=== PATIENT | female | born 1960 | race Caucasian/White ===

== ENCOUNTER → 2016-11-06 | Outpatient (CLI) | payer BC ==
[~2016-11-06] MED LIST: CALTRATE 600600 MG PO; LASIX 40MG TABL40 MG PO; PAXIL 20MG20 MG PO; PREVACID 15MG15 M1 PO
== END ==
LOC: LIGHT 12:54
DX: R73.01 Impaired fasting glucose (principal); K21.9 Gastro-esophageal reflux disease without esophagitis; G47.33 Obstructive sleep apnea (adult) (pediatric); E66.01 Morbid (severe) obesity due to excess calories; Z68.41 Body mass index [BMI] 40.0-44.9, adult

== ENCOUNTER → 2017-02-19 | Outpatient (CLI) | payer BC | LOC: MC.RAD 13:36 | DX: Z12.31 Encounter for screening mammogram for malignant neoplasm of breast (principal); Z98.890 Other specified postprocedural states ==

== ENCOUNTER → 2017-12-31 | Outpatient (CLI) | payer BC | LOC: MC.RAD 13:58 | DX: Z12.31 Encounter for screening mammogram for malignant neoplasm of breast (principal); D24.2 Benign neoplasm of left breast; D24.1 Benign neoplasm of right breast; Z41.1 Encounter for cosmetic surgery ==

== ENCOUNTER → 2019-01-07 | Outpatient (CLI) | payer BC | LOC: MC.RAD 10:26 | DX: Z12.31 Encounter for screening mammogram for malignant neoplasm of breast (principal) ==

== ENCOUNTER → 2019-11-19 | Outpatient (CLI) | payer OTHER ==
[~2019-11-19] MED LIST changes: +AMOXICILLIN 8751 TAB PO; +COLACE 100100 MG/CAP PO; +MELATONIN1 MG PO; +MIRALAX PA17 GM/Dose PO; +NORCO 325 MG-51 TAB PO; +TOPROL XL 50MG50 MG PO; +ULTRAM 50MG TAB50 MG PO; +ZOFRAN ODT4 MG PO
== END ==
LOC: COL.RAD 09:44
DX: K80.10 Calculus of gallbladder with chronic cholecystitis without obstruction (principal)

== ENCOUNTER 2019-11-21 10:27 | Day surgery (SDC) | payer OTHER ==
[~2019-11-21] VITALS: Ht 175.3 cm; Wt 130.3 kg
[2019-11-21] VITALS (8 sets, daily range): BP systolic 137–175; BP diastolic 83–106; PULSE 74–94; TEMP 97.5–97.7
[2019-11-21] MEDS ORDERED: MELATONIN5 M1 PO (11:23)
[2019-11-21] MEDS ORDERED: ALEVE 220MG220 MG PO (11:24)
--- NOTE | 2019-11-21 11:36 | NUR ---
TO RM AT 1040- CALL LIGHT IN REACH FRIEND EDWARD AT BEDSIDE. RECEIVED IC-GREEN DYE
[2019-11-21] MEDS ORDERED: NORCO 325 MG-51 TAB PO (15:53)
[2019-11-21] MEDS ORDERED: MOTRIN 600600 MG/TAB PO (15:53)
--- NOTE | 2019-11-21 19:14 | NUR ---
Patient up to room 322 bed 2 from OR at 1810. Alert and oriented x 3. Lap sites x 5 with edges well approximated. Patient on 5l of O2 to maintain oxygen sats at 93-95%. Post op fluids infusing. Reported off to securities lending trader.
--- NOTE | 2019-11-21 19:30 | NUR ---
Dr. Ahn notified of pt.'s O2 saturation and the need for O2. Pt. will stay the night.
--- NOTE | 2019-11-21 21:30 | NUR ---
Pt. sitting up in bed at this time. Pt. is A&OX3. assessment complete. INT to rt. hand patent. Pt. reports gas pain to shoulders at this time. Pt. assisted with ambulating the halls. Pt. has a steady gait. Pt. also urinated at this time without complication. Pt. rates abd pain at a 4 at this time. Pt. denies need for pain meds at this time. Reminded pt. to call when ready for pain meds. Pt. voices understanding. Pt. denies further needs at this time. Call light within reach.
[2019-11-22 05:23] VITALS: BP 148/67; PULSE 84; TEMP 98.3
--- NOTE | 2019-11-22 07:30 | NUR ---
Patient in bed resting. Alert and oriented x 3. Assessment complete. Patient states she is having abdominal pain 5/10, medications given per orders. Lap sites x 5 with edges well approximated. INT to right hand. Patient states she is also having shoulder pain, educated patient and encouraged to increase ambulation. Denies further needs at this time.
[2019-11-22 07:32] VITALS: BP 160/85; PULSE 96; TEMP 97.4
--- NOTE | 2019-11-22 10:04 | NUR ---
Discharge education provided to patient. Educuated on activity, medications and shower. Educated on signs and symptoms of infection and when to call provider. Patient to call and schedule follow up appointment. Denies further needs at this time. INT to right hand discontinued, catheter tip intact. Denies further needs at this time. Patient dressed and waiting for family to pick her up will call when ready to leave.
--- NOTE | 2019-11-22 10:15 | NUR ---
Patient ambulated out with surgical staff and family
== END 2019-11-22 10:16 | disposition home or self-care (01) ==
LOC: SDCO 10:27 → SURG 19:29 → SDCO 11-22 10:16
DX: K80.13 Calculus of gallbladder with acute and chronic cholecystitis with obstruction (principal); I10 Essential (primary) hypertension; G47.33 Obstructive sleep apnea (adult) (pediatric); F32.9 Major depressive disorder, single episode, unspecified; E66.9 Obesity, unspecified; F17.210 Nicotine dependence, cigarettes, uncomplicated; F41.9 Anxiety disorder, unspecified; Z90.710 Acquired absence of both cervix and uterus; Z80.8 Family history of malignant neoplasm of other organs or systems; Z82.49 Family history of ischemic heart disease and other diseases of the circulatory system; Z85.42 Personal history of malignant neoplasm of other parts of uterus
CPT/HCPCS: OP; A9284; J0690; J1100; J1170; J2270; J3010; J7120

== ENCOUNTER → 2020-01-13 | Outpatient (CLI) | payer OTHER ==
[~2020-01-13] MED LIST changes: +ALEVE 220MG220 MG PO; +MELATONIN5 M1 PO; +MOTRIN 600600 MG/TAB PO
== END ==
LOC: MC.RAD 11:07
DX: Z12.31 Encounter for screening mammogram for malignant neoplasm of breast (principal)

== ENCOUNTER → 2020-07-26 | Outpatient (CLI) | payer OTHER | LOC: COL.RAD 14:31 | DX: K57.32 Diverticulitis of large intestine without perforation or abscess without bleeding (principal); K76.0 Fatty (change of) liver, not elsewhere classified; Z90.49 Acquired absence of other specified parts of digestive tract; Z90.710 Acquired absence of both cervix and uterus | CPT/HCPCS: Q9967 ==

== ENCOUNTER → 2021-11-09 | Outpatient (CLI) | payer OTHER | LOC: MC.RAD 10:45 | DX: Z12.31 Encounter for screening mammogram for malignant neoplasm of breast (principal) ==